=== PATIENT | female | born 1940 | race Caucasian/White ===

== ENCOUNTER 2021-09-14 07:19 | Outpatient (CLI) | payer MEDICARE, OTHER, SELFPAY | END 2021-09-14 07:20 | disposition home or self-care (01) | LOC: INJ CL 07:23 | PROVIDERS: PCP Family Medicine; Visit Provider Family Medicine | DX: M51.36 Other intervertebral disc degeneration, lumbar region (principal); M54.16 Radiculopathy, lumbar region; Z98.1 Arthrodesis status | CPT/HCPCS: 64483; J1100; Q9966 ==

== ENCOUNTER 2021-11-20 08:12 | Outpatient (CLI) | payer MEDICARE, OTHER, SELFPAY | END 2021-11-20 08:13 | disposition home or self-care (01) | LOC: INJ CL 08:12 | PROVIDERS: PCP Family Medicine; Visit Provider Family Medicine | DX: M51.36 Other intervertebral disc degeneration, lumbar region (principal); M54.16 Radiculopathy, lumbar region | CPT/HCPCS: 64483; 82962; J1100; Q9966 ==